=== PATIENT | female | born 1950 | race Caucasian/White ===

== ENCOUNTER 2018-05-21 14:53 | Emergency (ER) | payer MEDICAID ==
[2018-05-21 15:04] VITALS: RESP 20
--- NOTE | 2018-05-21 16:51 | C.PDOC ---
History Of Present Illness 67 y/o female presents to the ER with son complaining of right hip pain s/p fall today. As per son, patient was visiting him from [place]. He notes that she was walking outside when she tripped and fell onto her right hip. He states that she fell because there were shoes in the way. Son also states that patient has runny nose and sneezing which has been present for the past few days and fever which began today.Denies having cough, CP,SOB, abdominal pain, and diarrhea. <Saadia Kaminski - Last Filed: 05/21/18 19:15> History Per: Patient History/Exam Limitations: no limitations Onset/Duration Of Symptoms: Days Current Symptoms Are (Timing): Still Present Severity: Moderate <Saadia Kaminski - Last Filed: 05/21/18 19:15> <Shelli Molina - Last Filed: 05/21/18 20:17> Time Seen by Provider: 05/21/18 15:09 Chief Complaint (Nursing): Hip Pain Past Medical History Reviewed: Historical Data, Nursing Documentation, Vital Signs Vital Signs: Last Vital Signs Temp 99.7 F H 05/21/18 16:35 Pulse 73 05/21/18 15:00 Resp 20 05/21/18 15:00 BP 167/79 H 05/21/18 15:00 Pulse Ox 98 05/21/18 15:00 - Medical History PMH: HTN Surgical History: No Surg Hx Family History: States: No Known Family Hx - Social History Hx Alcohol Use: No Hx Substance Use: No - Immunization History Hx Tetanus Toxoid Vaccination: No Hx Influenza Vaccination: No Hx Pneumococcal Vaccination: No <Saadia Kaminski - Last Filed: 05/21/18 19:15> Vital Signs: Last Vital Signs Temp 99.7 F H 05/21/18 16:35 Pulse 73 05/21/18 15:00 Resp 20 05/21/18 15:00 BP 167/79 H 05/21/18 15:00 Pulse Ox 98 05/21/18 19:20 <Shelli Molina - Last Filed: 05/21/18 20:17> Review Of Systems Except As Marked, All Systems Reviewed And Found Negative. Constitutional: Positive for: Fever. Negative for: Chills Cardiovascular: Negative for: Chest Pain Respiratory: Negative for: Shortness of Breath Gastrointestinal: Negative for: Vomiting, Abdominal Pain, Diarrhea Musculoskeletal: Positive for: Other (right hip pain) Neurological: Negative for: Weakness, Numbness <KaminskiSaadia - Last Filed: 05/21/18 19:15> Physical Exam - Physical Exam Appears: Other (awake,alert) Skin: Normal Color, Warm, Dry Head: Atraumatic, Normacephalic Eye(s): bilateral: Normal Inspection Nose: Normal Oral Mucosa: Moist Neck: Supple Chest: Symmetrical Cardiovascular: Rhythm Regular Respiratory: Normal Breath Sounds, No Rales, No Rhonchi, No Wheezing Gastrointestinal/Abdominal: Normal Exam, Soft, No Tenderness, No Guarding, No Rebound Back: No CVA Tenderness, No Vertebral Tenderness Extremity: Normal ROM, Tenderness (tenderness to anterior aspect of right hip), No Swelling, Other (no shortening of right leg) Pulses: Left Dorsalis Pedis: Normal, Right Dorsalis Pedis: Normal Neurological/Psych: Oriented x3, Normal Speech <Saadia Kaminski - Last Filed: 05/21/18 19:15> ED Course And Treatment - Laboratory Results Result Diagrams: 05/21/18 16:51 05/21/18 16:51 O2 Sat by Pulse Oximetry: 98 (RA) Pulse Ox Interpretation: Normal <Saadia Kaminski Last Filed: 05/21/18 19:15> - Laboratory Results Result Diagrams: 05/21/18 16:51 05/21/18 16:51 Lab Results: Total Bilirubin 0.5 mg/dL (0.2-1.3) 05/21/18 16:51 AST 68 U/L (14-36) H 05/21/18 16:51 ALT 46 U/L (9-52) 05/21/18 16:51 Alkaline Phosphatase 71 U/L (38-126) 05/21/18 16:51 Total Protein 8.3 g/dL (6.3-8.3) 05/21/18 16:51 Albumin 4.4 g/dL (3.5-5.0) 05/21/18 16:51 Globulin 3.9 gm/dL (2.2-3.9) 05/21/18 16:51 Albumin/Globulin Ratio 1.1 (1.0-2.1) 05/21/18 16:51 Urine Color Yellow (YELLOW) 05/21/18 16:51 Urine Clarity Hazy (Clear) 05/21/18 16:51 Urine pH 5.0 (5.0-8.0) 05/21/18 16:51 Ur Specific [place] 1.017 (1.003-1.030) 05/21/18 16:51 Urine Protein Negative mg/dL (NEGATIVE) 05/21/18 16:51 Urine Glucose (UA) Normal mg/dL (Normal) 05/21/18 16:51 Urine Ketones Negative mg/dL (NEGATIVE) 05/21/18 16:51 Urine Blood Negative (NEGATIVE) 05/21/18 16:51 Urine Nitrate Negative (NEGATIVE) 05/21/18 16:51 Urine Bilirubin Negative (NEGATIVE) 05/21/18 16:51 Urine Urobilinogen Normal mg/dL (0.2-1.0) 05/21/18 16:51 Ur Leukocyte Esterase Neg Kimi/uL (Negative) 05/21/18 16:51 Urine WBC (Auto) 2 /hpf (0-5) 05/21/18 16:51 Urine RBC (Auto) 2 /hpf (0-3) 05/21/18 16:51 Ur Squamous Epith Cells 2 /hpf (0-5) 05/21/18 16:51 Urine Bacteria Rare (<OCC) 05/21/18 16:51 - CT Scan/US CT RIGHT HIP Other Rad Studies (CT/US): Read By Radiologist, Radiology Report Reviewed CT/US Interpretation: EXAM: CT right Hip, without IV contrast. CLINICAL HISTORY: Fall right sided pain. TECHNIQUE: Axial images were acquired through the right hip without IV contrast. Reformatted images were reviewed. 0.00 mGy- cm. COMPARISON: None provided. FINDINGS: BONES: No acute fracture or aggressive appearing osseous lesion. An old healed oblique fracture is seen in the inferior right pubic ramus. JOINTS: No dislocation. The joint spaces are normal. SOFT TISSUES: A 1.3 cm calcified granuloma is seen in the soft tissues of the right buttocks. IMPRESSION: 1. No acute osseous abnormality. 2. Old healed oblique fracture in the mid right inferior pubic ramus. 3. A 1.3 cm calcified granuloma is seen in the soft tissues of the right buttocks. . Electronically signed on May 21, 2018 8:06:44 PM EDT by: Desmodn Mccartney M.D., KEILA Certified By ABR & [facility]. Fellowship Trained MRI and CT Specialist. Progress Note: 8:13- Patient is resting comfortably and states her pain has improved. She and her son confirm history of prior fall in [place] with right pubic ramus fx. Explained CT scan is neg for any new acute fractures or bonyinjuries. Patient given Rx for pain medication and instructed to follow up with PMD in 1-2 days. She understands she should return to ED if symptoms worsen. <Shelli Molina - Last Filed: 05/21/18 20:17> Medical Decision Making Medical Decision Making: Plan: --Labs --UA --CXR --X-Ray-Hip 18:55 X-Ray is negative. However, on re-evaluation, patient continues to have pain with walking. CT Scan will be ordered. <Saadia Kaminski - Last Filed: 05/21/18 19:15> Disposition - Disposition Disposition Time: 18:57 - POA Present On Arrival: None <Saadia Kaminski - Last Filed: 05/21/18 19:15> Counseled Patient/Family Regarding: Studies Performed, Diagnosis, Need For Followup, Rx Given - Disposition Disposition Time: 20:15 - POA Present On Arrival: Falls Or Trauma <Shelli Molina - Last Filed: 05/21/18 20:17> - Disposition Referrals: [facility] [Outside] Disposition: HOME/ ROUTINE Condition: STABLE Prescriptions: Azithromycin [Z-Shankar] 250 mg PO DAILY #4 tab Ibuprofen [Motrin Tab] 600 mg PO Q6 PRN #30 tab PRN Reason: fever/pain Instructions: Hip Pain (DC), Acute Bronchitis, Adult (DC) Forms: [employer] (Spanish) Print Language: MOLDOVAN - Clinical Impression Clinical Impression: Hip pain, Bronchitis, Contusion, hip - Scribe Statement The provider has reviewed the documentation as recorded by the Sukhjinder Medina Provider Attestation: All medical record entries made by the Reneibpiedad were at my direction and personally dictated by me. I have reviewed the chart and agree that the record accurately reflects my personal performance of the history, physical exam, medical decision making, and the department course for this patient. I have also personally directed, reviewed, and agree with the discharge instructions and disposition. <Saadia Kaminski - Last Filed: 05/21/18 19:15> Physician Patient Turnover Patient Signed Over To: Shelli Molina Handoff Comments: pending CT hip, reeval and dispo <Saadia Kaminski - Last Filed: 05/21/18 19:15>
[2018-05-21 16:57] LABS: BASO % 0.5 % (0.0-2.0); EOS % 0.3 % (0.0-4.0); HEMOGLOBIN 12.5 g/dL (11.0-16.0); LYMPH % 13.5 % (20.0-40.0); MEAN CELL VOLUME 81.4 fL (81.0-99.0); MEAN CORPUSCULAR HEMOGLOBIN 26.5 pg (27.0-31.0); MEAN CORPUSCULAR HGB CONC 32.6 g/dL (33.0-37.0); MONO # 0.5 K/uL (0.0-0.8); MONO % 7.2 % (0.0-10.0); NEUT # 5.9 K/uL (1.8-7.0); NEUT % 78.5 % (50.0-75.0); RBC 4.7 Mil/uL (3.80-5.20); RED CELL DISTRIBUTION WIDTH 13.9 % (11.5-14.5); WHITE BLOOD COUNT 7.5 K/uL (4.8-10.8)
[2018-05-21 17:09] LABS: SQUAMOUS EPITHIAL 2 /hpf (0-5); URINE BACTERIA RARE (<OCC); URINE BILIRUBIN NEGATIVE (NEGATIVE); URINE BLOOD NEGATIVE (NEGATIVE); URINE CLARITY Hazy (Clear); URINE COLOR Yellow (YELLOW); URINE GLUCOSE (UA) NORMAL (Normal); URINE LEUKOCYTE ESTERASE NEG Leu/uL (Negative); URINE PROTEIN NEGATIVE (NEGATIVE); URINE UROBILINOGEN NORMAL mg/dL (0.2-1.0)
[2018-05-21 17:16] LABS: ALB/GLOB RATIO 1.1 (1.0-2.1); ALBUMIN 4.4 g/dL (3.5-5.0)
[2018-05-21 20:25] VITALS: BP 157/93; PULSE 64; TEMP 98.8; O2SAT 96
--- NOTE | 2018-05-22 09:21 | RAD ---
Date of service: 05/21/2018 PROCEDURE: HISTORY: fall/injury COMPARISON: None TECHNIQUE: AP pelvis and frog's leg view. FINDINGS: Generalized osteopenia present. Right L4-5 marginal osteophyte. Bilateral axial hip joint space narrowing. Bilateral diffuse acetabular mild-moderate spurring. No femoral head or neck or trochanteric fracture is noted. The right inferior pubic rim deformities compatible with an old fracture healed deformity. The right parasymphyseal bony deformity may be chronic as well-its chronicity however is less certain in the inferior right pubic ring. Chronicity nevertheless is favored here as well. IMPRESSION: No proximal femoral fracture noted. Deformity of the right inferior pubic ring and the right parasymphyseal location the inferior pubic ring is chronic appearing. The right parasymphyseal location fracture deformity is probably chronic as well-this latter site nevertheless is still indeterminate. Here acute on chronic pathology not excluded. Clinical correlation is essential. If further evaluation is needed consider MRI of the pelvis. Other findings as above.
--- NOTE | 2018-05-22 09:49 | CT ---
Date of service: 05/21/2018 PROCEDURE: CT scan of the right hip without contrast PROCEDURE: INDICATION: Fall TECHNIQUE: Multiple axial images were obtained with slice thickness of 2.5 mm. Coronal and sagittal reformatted images were obtained. Iterative reconstruction was used. Radiation dose: Total exam DLP = 451.08 mGy-cm. PROCEDURE: This CT exam was performed using one or more of the following dose reduction techniques: Automated exposure control, adjustment of the mA and/or kV according to patient size, and/or use of iterative reconstruction technique. COMPARISON: Plain radiographs performed earlier the same day. FINDINGS: The pelvis and visualized hips are normal without evidence for acute displaced fracture, bone destruction or focal bone lesion. There is an old fracture deformity in the right inferior pubic ramus. The hip joints are preserved. Periarticular muscles are normal in appearance. There is mild contusion in the lateral subcutaneous tissue. There is a peripherally calcified lesion in the lateral gluteal subcutaneous tissue which may represent an injection granuloma, calcified hematoma or sequela of prior trauma. The pelvic organs are unremarkable. IMPRESSION: No acute displaced fracture or dislocation. Old fracture deformity in the right inferior pubic ramus. A preliminary report was provided by [employer].
--- NOTE | 2018-05-22 10:40 | RAD ---
Date of service: 05/21/2018 PROCEDURE: CHEST RADIOGRAPH, 1 VIEW HISTORY: SOB COMPARISON: None available. FINDINGS: LUNGS: The lungs are well inflated. There is airspace disease in the right lung base. There is also triangular airspace disease in the right suprahilar region. There is mild pulmonary venous congestion PLEURA: No pneumothorax or pleural effusion. CARDIOVASCULAR: There is mild cardiomegaly. There are aortic atherosclerotic calcifications present. OSSEOUS STRUCTURES: Within normal limits for the patient's age. VISUALIZED UPPER ABDOMEN: Normal. OTHER FINDINGS: None. IMPRESSION: Triangular airspace disease in the right suprahilar region could represent pneumonia, post obstructive atelectasis/pneumonia is also a consideration. Follow-up after medical management is recommended to ensure complete resolution. If clinically indicated, correlation with CT scan with intravenous contrast may be performed. Airspace disease in the right lung base may represent atelectasis/pneumonia. The final report is tagged to the PA review folder.
== END 2018-05-21 20:25 | disposition home or self-care (01) ==
LOC: C.ER 14:53
DX: S70.01XA Contusion of right hip, initial encounter (principal); W01.0XXA Fall on same level from slipping, tripping and stumbling without subsequent striking against object, initial encounter; Y93.01 Activity, walking, marching and hiking; J40 Bronchitis, not specified as acute or chronic; M25.551 Pain in right hip